=== PATIENT | male | born 1950 | race Caucasian/White ===

== ENCOUNTER 2018-06-01 19:39 | Emergency (ER) | payer BC, MEDICARE, OTHER ==
[~2018-06-01] VITALS: Ht 175.3 cm; Wt 79.8 kg
[2018-06-01] MEDS ORDERED: ONDANSETRON 4 MG/2 ML VIAL ONE (20:38)
[2018-06-01] MEDS ORDERED: HYDROMORPHONE 2 MG/1 ML DISP.SYRIN ONE ×2 (20:38→20:44)
[2018-06-01] MEDS ORDERED: HYDROMORPHONE 1 MG/1 ML DISP.SYRIN IM ONE (20:45)
[2018-06-01] MEDS ORDERED: ONDANSETRON 4 MG/2 ML VIAL IM ONE (20:45)
[2018-06-01 22:10] VITALS: BP 151/91
--- NOTE | 2018-06-01 22:11 | NUR ---
Patient discharged to home in stable conditon. Written and verbal after care instructions given. Patient verbalizes understanding of instructions. Pt left ER via wheelchair accompanied by friend. They will use Uber to get home. All belongings with pt. VSS. NAD noted.
== END 2018-06-01 22:12 | disposition home or self-care (01) ==
LOC: ER 19:40
DX: M54.6 Pain in thoracic spine (principal); I10 Essential (primary) hypertension; E78.5 Hyperlipidemia, unspecified; Z88.0 Allergy status to penicillin; X50.1XXA Overexertion from prolonged static or awkward postures, initial encounter; Y93.89 Activity, other specified; Y92.89 Other specified places as the place of occurrence of the external cause; Y99.8 Other external cause status
CPT/HCPCS: 72072; 72100; 96372 ×2; 99284; J1170; J2405; A4663